=== PATIENT | female | born 1975 | race Caucasian/White ===

== ENCOUNTER 2018-07-13 13:03 | Emergency (ER) | payer BC ==
[2018-07-13 15:12] LABS: URINE BLOOD (Dip) POC Trace-intact (NEGATIVE); URINE GLUCOSE (Dip) POC Negative (NEGATIVE); URINE KETONES (Dip) POC Negative (NEGATIVE); URINE LEUKOCYTE EST (Dip) POC Negative (NEGATIVE); URINE NITRITE (Dip) POC Negative (NEGATIVE); URINE TOTAL PROTEIN POC Negative (NEGATIVE)
== END 2018-07-13 17:27 | disposition left against medical advice (07) ==
LOC: FTE 13:03
DX: D25.9 Leiomyoma of uterus, unspecified (principal)
CPT/HCPCS: 74176; 81003; 81025; 99284-25